=== PATIENT | male | born 2000 | race Caucasian/White ===

== ENCOUNTER → 2022-08-25 10:30 | Outpatient (BNVA) | payer MEDICAID, SELFPAY | PROVIDERS: PCP Pediatrics; Visit Provider Student in an Organized Health Care Education/Training Program | DX: M25.50 Pain in unspecified joint (principal); L40.9 Psoriasis, unspecified | CPT/HCPCS: 99202 ==

== ENCOUNTER 2022-08-25 11:09 | Outpatient (REF) | payer MEDICAID, SELFPAY ==
[2022-08-25 13:12] LABS: MANUAL DIFF FLAG NO
[2022-08-25 13:19] LABS: Basophils Absolute Auto 0.1 X10*3/uL (0.0-0.2); Basophils Percent Auto 0.9 % (0-2); Eosinophils Absolute Auto 0.3 X10*3/uL (0.0-0.4); Eosinophils Percent Auto 5.1 % (0-4); Hematocrit 46.6 % (42.0-52.0); Hemoglobin 15.6 g/dl (14.0-18.0); Imm Gran Abs Auto 0.01 X10*3/uL (0.00-0.03); Imm Gran Pct Auto 0.2 % (0.0-0.4); Lymphocytes Percent Auto 35.3 % (20-40); Mean Corpuscular HGB Conc 33.5 g/dl (31.0-36.0); Mean Corpuscular Hemoglobin 29.2 pg (27.0-33.0); Mean Corpuscular Volume 87.1 fL (80.0-98.0); Mean Platelet Volume 12.3 fL (9.4-12.4); Monocytes Absolute Auto 0.3 X10*3/uL (0.1-1.2); Monocytes Percent Auto 5.2 % (2-11); Neutrophils Absolute Auto 3.1 x10*3/uL (2.0-8.3); Neutrophils Percent Auto 53.3 % (45-73); Platelet Count 193 X10*3/uL (160-400); Red Blood Count 5.35 X10*6/uL (4.60-5.80); Red Cell Distribution Width 12.8 % (11.0-16.0); White Blood Count 5.7 X10*3/uL (4.8-10.8)
[2022-08-25 14:04] LABS: Alanine Aminotransferase 28 U/L (0-40); Albumin Level 4.9 g/dL (3.5-5.0); Alkaline Phosphatase 48 U/L (39-117); Anion Gap 13 (12-20); Aspartate Amino Transferase 17 U/L (5-37); Bilirubin Total 0.8 mg/dL (0.0-1.0); Blood Urea Nitrogen 18 mg/dL (9-16); C Reactive Protein < 0.10 mg/dL (< or = 0.50); Calcium 10.6 mg/dL (8.4-10.2); Carbon Dioxide 28 mmol/L (22-29); Chloride 105 mmol/L (96-108); Estimated Glomerular Filt Rate > 60; Glucose Random 100 mg/dL (60-115); Potassium 4.2 mmol/L (3.3-5.1); Rheumatoid Factor < 13.0 IU/mL (<15.0); Sodium 142 mmol/L (135-145); Total Protein 7.7 g/dL (6.5-8.0)
[2022-08-25 14:09] LABS: HBc Num1 0.07 S/CO (0.00-0.79); HBsAGNum1 0.37 S/CO (0.00-0.99); Hepatitis A Antibody IgM 0.16 Index (0-0.79); Hepatitis B Core Antibody Nonreactive (Nonreactive); Hepatitis B Surface Antigen Negative (Negative); ~HepC Num1 0.29 S/CO (0.00-0.79); ~Hepatitis A Antibody IgM Nonreactive (Nonreactive); ~Hepatitis B Surface Antibody NONREACTIVE (Nonreactive); ~Hepatitis C Antibody Nonreactive (Nonreactive)
[2022-08-25 14:16] LABS: Erythrocyte Sedimentation Rate 4 MM/HR (0-15)
[2022-08-29 14:23] LABS: Cyclic Citrullinated Peptide <16 UNITS
== END 2022-08-25 11:10 | disposition home or self-care (01) ==
LOC: HO.10HDL 11:09
PROVIDERS: Visit Provider Student in an Organized Health Care Education/Training Program
DX: Z11.59 Encounter for screening for other viral diseases (principal); M06.9 Rheumatoid arthritis, unspecified; M25.50 Pain in unspecified joint; Z72.89 Other problems related to lifestyle
CPT/HCPCS: 36415; 80053; 85025; 85652; 86140; 86200; 86431; 86704; 86706; 86709; 86803; 87340

== ENCOUNTER 2022-12-11 07:58 | Outpatient (AMB) | payer MEDICAID, SELFPAY ==
--- NOTE | 2022-12-11 08:01 | MHC.OFFVIS ---
Intake Vital Signs 12/11/22 08:02 Height 5 ft 7 in Weight 203 lb 7.787 oz BMI 31.9 BP 102/68 Blood Pressure Location Rt brachial Position Sitting Pulse 68 Pulse Source Pulse Oximeter Temp 97.9 F Temp Source Skin Pulse Oximetry (%) 98 Oxygen Delivery Method Room Air Intake Visit Reasons: PSO Intake Note: Here to follow up on joint pains. 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 States that he took Aleve once daily for about a week then used Aleve as needed. He has been using it about once a week. Feels much better overall. Initial hx: This Is a 22-year-old male who was recently diagnosed with psoriasis who presents for evaluation of multiple joint pain. Patient states that he started having itchy skin rashes on his knees, legs, elbows around 2018, he was initially diagnosed with eczema, he was diagnosed with psoriasis a few months ago and was started on metal methadone cream which she applies most days with improvement. Over the last year has been having worsening joint pain in his back, elbows, top of both knees. He also feels that he does not have normal strength in his hands but does not have pain or stiffness. He does not believe he has any swollen joints. He has morning stiffness of his Back lasting 2 minutes. He takes Tylenol once or twice a month, took Motrin 400 mg once or twice a months which provided some moderate relief. 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 He is unaware of any family history of autoimmune rheumatic disease. 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[employer] Review of Systems Musc Denies arthralgias Physical Exam Vital Signs: Last Vital Signs Temp 97.9 F 12/11/22 08:02 Pulse 68 12/11/22 08:02 BP 102/68 12/11/22 08:02 Pulse Ox 98 12/11/22 08:02 Oxygen Delivery Method Room Air 12/11/22 08:02 BMI result Body Mass Index 31.9 Const General: cooperative and healthy appearing Nutritional Appearance: overweight Orientation/consciousness: patient oriented x3 Limitations: no limitations HEENT Head: Yes normocephalic Resp Effort & Inspection: normal respiratory effort and able to speak in complete sentences Auscultation: clear to auscultation bilaterally Cardio Rate: regular rate Neuro General: patient oriented x3 Extrem Other: No swollen or tender joints upon evaluation of hands, wrists, elbows, shoulders, knees, ankles and toes. Some onycholysis of bilateral index fingers , no nail pitting Geovanny test 10-17 cm Assessment & Plan Assessment & Plan (1) Arthralgia: Code(s): M25.50 - Pain in unspecified joint Qualifiers: Joint pain location: unspecified Qualified Code(s): M25.50 - Pain in unspecified joint Plan: This is a 22-year-old male recently diagnosed with psoriasis who presents for evaluation of multiple joint pain. Physical exam and blood work is unremarkable. There are no signs of inflammatory arthritis. 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 Review with patient signs and symptoms suggestive of inflammatory arthritis. Advised patient to come back for re-evaluation as needed. Plan I spent 15 minutes reviewing patient's chart, evaluating patient, counseling patient and documenting in the chart Coding Level of Care Code Est Pt Level 3 (41013) Diagnoses Arthralgia, unspecified joint M25.50 Joint pain location: unspecified
[2022-12-11 08:02] VITALS: BP 102/68; PULSE 68; TEMP 36.6; O2SAT 98; BMI 31.9
== END 2022-12-11 08:19 | disposition home or self-care (01) ==
PROVIDERS: PCP Pediatrics; Referring Provider Pediatrics; Visit Provider Student in an Organized Health Care Education/Training Program
DX: M25.50 Pain in unspecified joint (principal)
CPT/HCPCS: 99213

== ENCOUNTER → 2022-12-11 07:58 | Outpatient (BNVA) | payer MEDICAID, SELFPAY | PROVIDERS: PCP Pediatrics; Referring Provider Pediatrics; Visit Provider Student in an Organized Health Care Education/Training Program | DX: M25.50 Pain in unspecified joint (principal) | CPT/HCPCS: 99212 ==